=== PATIENT | female | born 1985 | race Two or more races ===

== ENCOUNTER 2017-01-28 13:18 | Emergency (ER) | payer OTHER ==
[~2017-01-28] VITALS: Ht 172.7 cm; Wt 63.5 kg
[2017-01-28 13:18] VITALS: BP 122/80
[~2017-01-28 13:18] MED LIST: NO REPORTABLE MEDS
[2017-01-28] MEDS ORDERED: AMOX/CLAVULANATE 250 MG TABLET ONE (13:55)
[2017-01-28] MEDS ORDERED: ACETAMINOPHEN ES 500 MG TABLET ONE (13:55)
[2017-01-28] MEDS: AMOX/CLAVULANATE 250 MG TABLET PO ONE (13:58)
[2017-01-28] MEDS: ACETAMINOPHEN ES 500 MG TABLET PO ONE (14:00)
== END 2017-01-28 14:06 | disposition home or self-care (01) ==
LOC: ER 13:20
DX: J02.9 Acute pharyngitis, unspecified (principal)
CPT/HCPCS: A4606; Z7610

== ENCOUNTER 2017-01-28 23:06 | Emergency (ER) | payer OTHER ==
[~2017-01-28] VITALS: Ht 162.6 cm; Wt 59.0 kg
--- NOTE | 2017-01-28 23:13 | NUR ---
31 YO FEMALE BB RA FROM HOME, C/O FEVER, GENERALIZED BODY ACHES AND SORE THROAT X 1 DAY. PATIENT ASSISTED TO ER BED BY EMS. PATIENT SKIN WARM AND DRY, RESP EVEN AND UNLABORED. PATIENT STATES SHE WAS SEEN HERE TODAY, DC WITH ANTIBIOTICS FOR PHARYNGITIS. AWAITING ORDER FROM PROVIDER
[2017-01-28] MEDS ORDERED: LIDOCAINE VISCOUS 2% UD 15 ML UDC MM ONE (23:30)
[2017-01-28] MEDS ORDERED: ACETAMINOPHEN 325 MG TABLET PO ONE (23:30)
--- NOTE | 2017-01-28 23:30 | NUR ---
DR. ROGERS AT BEDSIDE FOR EVAL.
[2017-01-28] MEDS ORDERED: LIDOCAINE VISCOUS 2% UD 15 ML UDC ONE (23:33)
[2017-01-28] MEDS ORDERED: ACETAMINOPHEN 325 MG TABLET ONE (23:34)
--- NOTE | 2017-01-29 00:16 | NUR ---
Patient discharged to home in stable condition. Written and verbal after care instructions given. Patient verbalizes understanding of instruction. ambulatory with a steady gait.
[2017-01-29 00:17] VITALS: BP 124/83
== END 2017-01-29 00:17 | disposition home or self-care (01) ==
LOC: ER 23:07
DX: J02.9 Acute pharyngitis, unspecified (principal); R00.0 Tachycardia, unspecified
CPT/HCPCS: A4606; Z7610